=== PATIENT | female | born 1930 | race Caucasian/White ===

== ENCOUNTER → 2018-10-21 | Outpatient (CLI) | payer OTHER | END | disposition home or self-care (01) | LOC: RADUSWWP 11:53 | PROVIDERS: ATTEND Family Medicine | DX: M79.604 Pain in right leg (principal); M79.605 Pain in left leg | CPT/HCPCS: 93923 ==

== ENCOUNTER 2021-01-18 10:23 | Emergency (ER) | payer MEDICARE ==
[2021-01-18] MEDS ORDERED: SODIUM CHLORIDE 0.9% 500 ML 500 ML IV ONE (10:56)
--- NOTE | 2021-01-18 11:07 | ED ---
Weakness HPI - General Chief complaint: Weakness Stated complaint: weakness Time Seen by Provider: 01/18/21 10:30 Source: EMS Mode of arrival: EMS Limitations: physical limitation - History of Present Illness Initial comments: Patient is an 89-year-old female with past medical history of multiple myeloma, hemodialysis Friday, and Friday, coronary disease status post bypass who presents to the emergency department with weakness 2 days. She was recently hospitalized at [facility] and diagnosed with cellulitis to the left lower extremity. She was discharged home on Friday. Reports her last dialysis session was on Friday. She did not go to dialysis this week because she was having significant diarrhea. She felt more hospital she was placed on stool softeners which led to diarrhea. She also had some antibiotic use. Zak mccarthy presents with lethargy and low blood pressure. Patient reports that she has had recent low blood pressures at the other facility was started on Midodrin. Patient denies any chest pain or shortness of breath. No abdominal pain. Patient only makes minimal urine at baseline. No fevers or chills. Denies cough. No other alleviating, precipitating or modifying factors - Related Data Home Medications Medication Instructions Recorded Confirmed Aspirin 81 mg PO DAILY 11/03/20 01/18/21 Nitroglycerin 0.4 mg SL Q5M PRN 11/03/20 01/18/21 oxyCODONE-APAP 10-325MG [Percocet 1 tab PO TID PRN 11/03/20 01/18/21 10-325 mg] Acyclovir [Zovirax] 200 mg PO DAILY 01/18/21 01/18/21 Ciprofloxacin HCl [Cipro] 500 mg PO DAILY 01/18/21 01/18/21 Famotidine 10 mg PO DAILY 01/18/21 01/18/21 Lactulose [Constulose] 20 gm PO BID 01/18/21 01/18/21 Lenalidomide [Revlimid] 5 mg PO TUTHSA 01/18/21 01/18/21 Midodrine [ProAmatine] 5 mg PO AC-BID 01/18/21 01/18/21 Morphine Sulfate [Ms Contin] 15 mg PO Q12H 01/18/21 01/18/21 Sennosides [Senna] 8.6 mg PO HS 05/13/21 05/13/21 dexAMETHasone [Dexamethasone] 16 mg PO FR 01/18/21 01/18/21 Allergies Allergy/AdvReac Type Severity Reaction Status Date / Time iron Allergy Unknown Verified 01/18/21 12:33 Nohhzmy-Maa-Lbm Reductase Allergy Unknown Verified 01/18/21 12:33 Inhibitor meperidine [From Demerol] AdvReac Unknown Verified 01/18/21 10:49 Review of Systems ROS Statement: Those systems with pertinent positive or pertinent negative responses have been documented in the HPI. ROS Other: All systems not noted in ROS Statement are negative. Past Medical History Past Medical History: Asthma, Cancer, CVA/TIA, Deep Vein Thrombosis (DVT), GERD/Reflux, Hyperlipidemia, Hypertension, Myocardial Infarction (non Q-wave), Renal Disease Additional Past Medical History / Comment(s): MYELOMA. HEMODIALYSIS. LEFT LEG. "STENT IN NECK". HIATAL HERNIA. Last Myocardial Infarction Date:: 2012 History of Any Multi-Drug Resistant Organisms: None Reported Past Surgical History: Coronary Bypass/CABG, Orthopedic Surgery, Tonsillectomy Additional Past Surgical History / Comment(s): QUADRUPLE BYPASS SURGERY. LEFT HIP REPLACEMENT. Past Anesthesia/Blood Transfusion Reactions: Previous Problems w/ Anesthesia Additional Past Anesthesia/Blood Transfusion Reaction / Comment(s): INCREASE IN BLOOD PRESSURE Past Psychological History: No Psychological Hx Reported Smoking Status: Former smoker Past Alcohol Use History: None Reported Past Drug Use History: None Reported General Exam Limitations: no limitations General appearance: alert, other (aggressive with staff, demanding pain medications) Head exam: Present: atraumatic, normocephalic, normal inspection Eye exam: Present: normal appearance, PERRL, EOMI. Absent: scleral icterus, conjunctival injection, periorbital swelling Respiratory exam: Present: rales Cardiovascular Exam: Present: regular rate, normal rhythm, normal heart sounds. Absent: systolic murmur, diastolic murmur, rubs, gallop, clicks GI/Abdominal exam: Present: soft, normal bowel sounds. Absent: distended, tenderness, guarding, rebound, rigid Extremities exam: Present: other (left llower leg is bandaged - removed to reveal several open areas of skin, appear chronic) Course Vital Signs 01/18/21 01/18/21 01/18/21 10:26 11:11 12:03 Temperature Pulse Rate 71 61 64 Respiratory 18 16 18 Rate Blood Pressure 71/48 82/51 75/54 O2 Sat by Pulse 93 L 94 L Oximetry 01/18/21 12:55 Temperature 97.4 F L Pulse Rate 66 Respiratory 22 Rate Blood Pressure 92/61 O2 Sat by Pulse 98 Oximetry - Reevaluation(s) Reevaluation #1: 01/18/21 11:35 Spoke with cardiology - evaluating EKG Reevaluation #2: Cardiology requesting I call a STEMI activation 01/18/21 11:35 Reevaluation #3: Patient refusing cath. Stating she is a DNR 01/18/21 11:50 EKG Findings - EKG Comments: EKG Findings:: EKG demonstrates AV pacemaker. X-rays appropriately. Rate of 62. FL interval 134. QRS 94. QTC 479. ST segment elevation in the inferior leads. ST depression 1, aVL and V2. Negative for sgarbossa criteria. Repeat EKG at 1132 demonstrates AV pacemaker. Captures appropriately. ST elevation inferior leads, reciprocal depression 1, avl, V2-V6. Procedures - Intubation Laryngoscope: fiber optic video scope Size: 3 ET Tube Size: 7.5 ET Tube Uncuffed: No Tube Secured Depth (cm): 24 Tube Secured Location: lips Tube Placement Confirmation: visualized tube passing through cords, equal breath sounds bilaterally Intubation Complications: none Medical Decision Making - Medical Decision Making Upon arrival patient was placed into room 3. A thorough history and physical exam was performed. Patient is found to be hypotensive and covered in stool. She is cleaned up and IV access is established. Patient was given her dose of Midodrin as she has not been taking her medications and arrives with low blood pressure which she states has been present recently for her. Laboratory studies were obtained by a sinus tach. 12-lead EKG was obtained which does demonstrate inferior wall STEMI with posterior extension. Because of this I did call cardiology and they did present immediately to the emergency department. STEMI is activated however patient states that she is DO NOT RESUSCITATE, DO NOT INTUBATE and does not want cardiac catheterization at this time. Son is at bedside and does agree to this. Patient is alert, oriented and requesting no aggressive measures. We did proceed with laboratory studies. The patient was given 4 chewable aspirins, heparin, statin, Plavix and started on a heparin drip. Laboratory studies are reviewed and demonstrate a creatinine of 8.6. Lactic acid is 9.3. Troponin is 15.8. BNP 103,000. The results are discussed with the patient and her son. We did attempt to redraw some laboratory studies however the patient refused stating "just let me ". Patient does become more lethargic and eventually becomes obtunded. At this point is is when the patient's son changed his mind and stated that he wanted his mother to be a full code. Because of that she is moved to trauma bay 2. Patient does lose pulses and therefore CPR was initiated. Patient was given 4 doses of epinephrine, 1 amp of bicarb, 1 g of calcium chloride, 300 of amiodarone. After multiple pulse checks the patient fails to demonstrate cardiac activity. I did discuss with the patient son the unfortunate prognosis of continuing resuscitation at this time. Son does understand. Time of was called at 1:32 PM. Did call discuss the case with Dr. Solis. Also spoke with the nuclear medical tech who does release the patient. Case #[id number]. Patient may be released to the home. Dr. Solis will fill out certificate. - Lab Data Result diagrams: 01/18/21 11:55 01/18/21 11:55 Lab Results 01/18/21 01/18/21 01/18/21 Range/Units 11:55 11:55 11:55 WBC 11.8 H (3.8-10.6) k/uL RBC 3.53 L (3.80-5.40) m/uL Hgb 10.5 L (11.4-16.0) gm/dL Hct 34.4 (34.0-46.0) % MCV 97.6 (80.0-100.0) fL MCH 29.8 (25.0-35.0) pg MCHC 30.6 L (31.0-37.0) g/dL RDW 20.5 H (11.5-15.5) % Plt Count 96 L (150-450) k/uL MPV 9.6 Neutrophils % (Manual) 87 % Band Neuts % (Manual) 1 % Lymphocytes % (Manual) 8 % Monocytes % (Manual) 4 % Myelocytes % 1 % Neutrophils # (Manual) 10.30 H (1.3-7.7) k/uL Lymphocytes # (Manual) 0.94 L (1.0-4.8) k/uL Monocytes # (Manual) 0.47 (0-1.0) k/uL Myelocytes # (Manual) 0.12 H (0) k/uL Nucleated RBCs 1 H (0-0) /100 WBC Manual Slide Review Performed Hypochromasia Marked Anisocytosis Moderate Macrocytosis Moderate Sodium 137 (137-145) mmol/L Potassium 5.7 H (3.5-5.1) mmol/L Chloride 101 (98-107) mmol/L Carbon Dioxide 14 L (22-30) mmol/L Anion Gap 22 mmol/L BUN 76 H (7-17) mg/dL Creatinine 8.68 H* (0.52-1.04) mg/dL Est GFR (CKD-EPI)AfAm 4 (>60 ml/min/1.73 sqM) Est GFR (CKD-EPI)NonAf 4 (>60 ml/min/1.73 sqM) Glucose 103 H (74-99) mg/dL Plasma Lactic Acid Stevie 9.3 H* (0.7-2.0) mmol/L Calcium 8.8 (8.4-10.2) mg/dL Magnesium 2.2 (1.6-2.3) mg/dL Total Bilirubin 1.4 H (0.2-1.3) mg/dL AST 3344 H (14-36) U/L ALT 1756 H (4-34) U/L Alkaline Phosphatase 202 H (38-126) U/L Creatine Kinase 211 H (30-135) U/L Troponin I (0.000-0.034) ng/mL NT-Pro-B Natriuret Pep pg/mL Total Protein 6.2 L (6.3-8.2) g/dL Albumin 3.4 L (3.5-5.0) g/dL 01/18/21 01/18/21 Range/Units 11:55 11:55 WBC (3.8-10.6) k/uL RBC (3.80-5.40) m/uL Hgb (11.4-16.0) gm/dL Hct (34.0-46.0) % MCV (80.0-100.0) fL MCH (25.0-35.0) pg MCHC (31.0-37.0) g/dL RDW (11.5-15.5) % Plt Count (150-450) k/uL MPV Neutrophils % (Manual) % Band Neuts % (Manual) % Lymphocytes % (Manual) % Monocytes % (Manual) % Myelocytes % % Neutrophils # (Manual) (1.3-7.7) k/uL Lymphocytes # (Manual) (1.0-4.8) k/uL Monocytes # (Manual) (0-1.0) k/uL Myelocytes # (Manual) (0) k/uL Nucleated RBCs (0-0) /100 WBC Manual Slide Review Hypochromasia Anisocytosis Macrocytosis Sodium (137-145) mmol/L Potassium (3.5-5.1) mmol/L Chloride (98-107) mmol/L Carbon Dioxide (22-30) mmol/L Anion Gap mmol/L BUN (7-17) mg/dL Creatinine (0.52-1.04) mg/dL Est GFR (CKD-EPI)AfAm (>60 ml/min/1.73 sqM) Est GFR (CKD-EPI)NonAf (>60 ml/min/1.73 sqM) Glucose (74-99) mg/dL Plasma Lactic Acid Stevie (0.7-2.0) mmol/L Calcium (8.4-10.2) mg/dL Magnesium (1.6-2.3) mg/dL Total Bilirubin (0.2-1.3) mg/dL AST (14-36) U/L ALT (4-34) U/L Alkaline Phosphatase (38-126) U/L Creatine Kinase (30-135) U/L Troponin I 15.800 H* (0.000-0.034) ng/mL NT-Pro-B Natriuret Pep 118715 pg/mL Total Protein (6.3-8.2) g/dL Albumin (3.5-5.0) g/dL Critical Care Time Critical Care Time: Yes Critical Care Time: 48 minutes for stemi activation, cardiology consultation, subsequent decline after refusing cath. CCT independent of intubation and cpr time Disposition Clinical Impression: STEMI (ST elevation myocardial infarction), Cardiac arrest, ESRD (end stage renal disease), Lactic acid acidosis, Transaminitis Disposition: Is patient prescribed a controlled substance at d/c from ED?: No Referrals: Analia Solis MD [Primary Care Provider] - 1-2 days Preliminary Cause of : Cardiac arrest
[2021-01-18] MEDS ORDERED: MIDODRINE 5 MG TAB PO STA (11:08)
[2021-01-18] MEDS ORDERED: fentaNYL (PF) 50 MCG/ML 2 ML AMP IVP STA (11:10)
[2021-01-18] MEDS ORDERED: HEPARIN SODIUM 1,000 UN/ML (10ML VL) IV STA ×2 (11:48→11:53)
[2021-01-18] MEDS ORDERED: ASPIRIN 81 MG PO STA (11:50)
[2021-01-18] MEDS ORDERED: ATORVASTATIN 80 MG TAB PO STA (11:50)
--- NOTE | 2021-01-18 11:52 | XR ---
EXAMINATION TYPE: XR chest 2V DATE OF EXAM: 01/18/2021 COMPARISON: NONE HISTORY: Shortness of breath TECHNIQUE: Frontal and lateral views of the chest are obtained. FINDINGS: Scattered senescent parenchymal changes noted. Hyperinflation compatible with COPD. No evidence for infiltrate. No evidence for atelectasis. Heart size is stable. Mediastinal structures are stable and grossly unremarkable. No evidence for hilar prominence. Degenerative changes dorsal spine. IMPRESSION: 1. No evidence for acute pulmonary disease.
[2021-01-18] MEDS ORDERED: HEPARIN SODIUM,PORCINE 5,000 UNIT/ML 1 ML VIAL IV STA (11:53)
[2021-01-18] MEDS ORDERED: HEPARIN SODIUM 1,000 UN/ML (10ML VL) IV PRN (11:54)
[2021-01-18] MEDS ORDERED: CLOPIDOGREL 75 MG TAB PO STA (11:58)
[2021-01-18] MEDS ORDERED: HEPARIN SOD,PORK IN 0.45% NACL 25,000 UNIT in 0.45% NACL 1 250ML.BAG IV SCH (12:15)
[2021-01-18 12:22] LABS: Anisocytosis Moderate; HCT 34.4 % (34.0-46.0); HGB 10.5 gm/dL (11.4-16.0); Hypochromasia Marked; MCH 29.8 pg (25.0-35.0); MCHC 30.6 g/dL (31.0-37.0); MCV 97.6 fL (80.0-100.0); Macrocytosis Moderate; Mean Platelet Volume 9.6; RBC 3.53 m/uL (3.80-5.40); RDW 20.5 % (11.5-15.5)
[2021-01-18 12:23] LABS: Potassium 5.7 mmol/L (3.5-5.1)
[2021-01-18 12:24] LABS: Albumin 3.4 g/dL (3.5-5.0); Calcium 8.8 mg/dL (8.4-10.2); Magnesium 2.2 mg/dL (1.6-2.3); Total Bilirubin 1.4 mg/dL (0.2-1.3); Total Protein 6.2 g/dL (6.3-8.2)
[2021-01-18 12:35] LABS: Platelet Count 96 k/uL (150-450)
[2021-01-18 12:38] LABS: Band Neutrophils % 1 %; Lymphocytes # (M) 0.94 k/uL (1.0-4.8); Monocytes # (M) 0.47 k/uL (0-1.0); Myelocytes # (M) 0.12 k/uL (0); Myelocytes % 1 %; Neutrophils % (M) 87 %; Nucleated Red Blood Cells 1 /100 WBC (0-0); Total Cells Counted 200; WBC 11.8 k/uL (3.8-10.6)
[2021-01-18 12:57] VITALS: BP 92/61; PULSE 66; RESP 22; TEMP 97.4
--- NOTE | 2021-01-18 13:11 | P.CRDCN ---
History of Present Illness History of present illness: HISTORY OF PRESENTING ILLNESS This is a pleasant 89-year-old female past medical history significant for end stage renal disease on HD, hypertension with hypotension on midodrine, history of multiple myeloma, dyslipidemia, coronary artery disease status post bypass grafting and peripheral vascular disease status post carotid stenting. Exact details of all of her interventions are unavailable. She follows with a information resource consultant at [place]. She presented to the hospital with symptoms of diarrhea. She was recently seen at [facility] secondary to cellulitis. She was receiving outpatient IV antibiotics. At that time she also was having issues with constipation and was given some sort of a laxative. According to the patient she was last dialyzed on Friday. She did not make it Friday because of diarrhea. On arrival to the emergency department an EKG was obtained revealing ST elevation. STEMI alert was initiated. She is seen and examined resting comfortably in bed in no acute distress. She denies having symptoms of chest discomfort or shortness of breath. DIAGNOSTICS EKG reveals ST elevation inferiorly with recipricol depression anteriorly and dual chamber pacemaker. Chest xray negative for an acute cardiopulmonary process. Labs pending. Current cardiac medications include aspirin 81 mg daily, Zetia 10 mg daily, Imdur 30 mg daily and metoprolol 25 mg twice a day. REVIEW OF SYSTEMS At the time of my exam: CONSTITUTIONAL: Denies fever or chills. CARDIOVASCULAR: Denies chest pain, shortness of breath, orthopnea, PND or palpitations. RESPIRATORY: Denies cough. GASTROINTESTINAL: Denies abdominal pain, diarrhea, constipation, nausea or vomiting. MUSCULOSKELETAL: Denies myalgias. NEUROLOGIC: Denies numbness, tingling, headacbe or weakness. ENDOCRINE: Denies fatigue, weight change, polydipsia or polyurina. GENITOURINARY: Denies burning, hematuria or urgency with micturation. HEMATOLOGIC: Denies history of anemia or bleeding. PHYSICAL EXAMINATION Blood pressure 75/54 heart rate 64 afebrile and maintaining oxygen saturation on room air. CONSTITUTIONAL: No apparent distress. Frail. HEENT: Head is normocephalic. Pupils are equal, round. Sclerae anicteric. Mucous membranes of the mouth are moist. No JVD. No carotid bruit. CHEST EXAMINATION: Lungs are clear to auscultation. No chest wall tenderness is noted on palpation or with deep breathing. HEART EXAMINATION: Regular rate and rhythm. S1, S2 heard. Systolic ejection mur mur at the base, no gallops or rub. ABDOMEN: Soft, nontender. Positive bowel sounds. EXTREMITIES: Faint peripheral pulses, no lower extremity edema, dressing in place to the left anterior lower extremity and no calf tenderness. NEUROLOGIC EXAMINATION: Patient is awake, alert and oriented x3. ASSESSMENT ST elevated myocardial infarction Diarrhea End-stage renal disease on hemodialysis Multiple myeloma Chronic left lower extremity cellulitis Hypertension Dyslipidemia Coronary artery disease status post bypass grafting Peripheral vascular disease status post carotid stenting PLAN Recommend cardiac catheterization. The patient and her son are explained the risks of the procedure. The patient herself would prefer medical management. Due to her end-stage renal disease, multiple myeloma and multiple comorbid conditions this is a reasonable decision. We will maximize her medical therapy. Initiate IV heparin infusion for 48 hours. Obtain 2-D echocardiogram and Doppler study to assess cardiac structure and function. Check CMP, CBC, troponin and NT proBNP. Consult nephrology for possible dialysis today. Further recommendations to follow based upon clinical course. Thank you kindly for this consultation. Nurse Practitioner note has been reviewed, I agree with a documented findings and plan of care. Patient was seen and examined. Past Medical History Past Medical History: Asthma, Cancer, CVA/TIA, Deep Vein Thrombosis (DVT), GERD/Reflux, Hyperlipidemia, Hypertension, Myocardial Infarction (non Q-wave), Renal Disease Additional Past Medical History / Comment(s): MYELOMA. HEMODIALYSIS. LEFT LEG. "STENT IN NECK". HIATAL HERNIA. Last Myocardial Infarction Date:: 2012 History of Any Multi-Drug Resistant Organisms: None Reported Past Surgical History: Coronary Bypass/CABG, Orthopedic Surgery, Tonsillectomy Additional Past Surgical History / Comment(s): QUADRUPLE BYPASS SURGERY. LEFT HIP REPLACEMENT. Past Anesthesia/Blood Transfusion Reactions: Previous Problems w/ Anesthesia Additional Past Anesthesia/Blood Transfusion Reaction / Comment(s): INCREASE IN BLOOD PRESSURE Past Psychological History: No Psychological Hx Reported Smoking Status: Former smoker Past Alcohol Use History: None Reported Past Drug Use History: None Reported Medications and Allergies Home Medications Medication Instructions Recorded Confirmed Type Aspirin 81 mg PO DAILY 11/03/20 11/03/20 History Ezetimibe [Zetia] 10 mg PO DAILY 11/03/20 11/03/20 History Isosorbide Mononitrate ER [Imdur] 30 mg PO DAILY 11/03/20 11/03/20 History Metoprolol Tartrate 25 mg PO BID 11/03/20 11/03/20 History Morphine Sulfate 15 mg PO DAILY PRN 11/03/20 11/03/20 History Nitroglycerin 0.4 mg SL DIRECTED PRN 11/03/20 11/03/20 History Omeprazole 20 mg PO DAILY 11/03/20 11/03/20 History oxyCODONE-APAP 10-325MG [Percocet 1 tab PO DAILY PRN 11/03/20 11/03/20 History 10-325 mg] Allergies Allergy/AdvReac Type Severity Reaction Status Date / Time meperidine [From Demerol] AdvReac Unknown Verified 01/18/21 10:49 Physical Exam Vitals: Vital Signs Pulse Resp BP Pulse Ox 01/18/21 11:11 61 16 82/51 94 L 01/18/21 10:26 71 18 71/48 93 L Intake and Output 01/17/21 01/18/21 01/18/21 22:59 06:59 14:59 Other: Weight 54.431 kg Results Current Medications Generic Name Dose Route Start Last Admin Trade Name Freq PRN Reason Stop Dose Admin Heparin Sodium (Porcine) 4,000 unit 01/18/21 11:53 01/18/21 11:50 Heparin Sodium,Porcine 5,000 Unit/Ml 1 Ml Vial IV 01/18/21 11:54 4,000 unit ONCE STA Administration Intake and Output 01/17/21 01/18/21 01/18/21 22:59 06:59 14:59 Other: Weight 54.431 kg Patient Weight 01/19/21 06:59 Weight 54.431 kg
[2021-01-18] MEDS ORDERED: CALCIUM CHLORIDE 100 MG/ML 10 ML SYRINGE ONE (13:15)
[2021-01-18] MEDS ORDERED: SODIUM BICARB 8.4% 50 ML SYR (1 MEQ/ML) ONE (13:15)
[2021-01-18] MEDS ORDERED: DEXTROSE 5% IN WATER 50 ML BAG ONE (13:15)
[2021-01-18] MEDS ORDERED: AMIODARONE 50 MG/ML 3 ML VIAL IV ONE (13:15)
[2021-01-18] MEDS ORDERED: EPINEPHrine 10 ML SYRINGE (0.1 MG/ML) ONE (13:15)
[2021-01-19] MEDS ORDERED: ASPIRIN 81 MG PO SCH (09:00)
[2021-01-19] MEDS ORDERED: CLOPIDOGREL 75 MG TAB PO SCH (09:00)
[2021-01-19] MEDS ORDERED: ATORVASTATIN 40 MG TAB PO SCH (09:00)
--- NOTE | 2021-01-31 10:23 | ECHOF ---
Referral Reason:stemi, declines cath ER 3 MEASUREMENTS -------- HEIGHT: 165.1 cm WEIGHT: 54.4 kg BP: RVIDd: 3.7 cm (< 3.3) IVSd: 1.2 cm (0.6 - 1.1) LVIDd: 3.3 cm (3.9 - 5.3) LVPWd: 1.1 cm (0.6 - 1.1) IVSs: 1.6 cm LVIDs: 1.6 cm LVPWs: 1.8 cm LAESV Index (A-L): 16.63 ml/m MV E Obey: 1.46 m/s MV DecT: 217 ms MV A Obey: 0.99 m/s MV E/A Ratio: 1.47 AV maxP.57 mmHg AV meanP.64 mmHg AR PHT: 606 ms RAP: 5.00 mmHg RVSP: 30.57 mmHg FINDINGS -------- This was a technically good study. The left ventricular size is normal. There is mild concentric left ventricular hypertrophy. Overa ll left ventricular systolic function is low-normal with, an EF between 50 - 55 %. There is paradox ical/dysynergic septal motion consistent with right ventricular volume overload and/or elevated right ventricular end-diastolic pressure. Normal LAP Grade 1 Diastolic Dysfunction. Basal inferoseptal LV wall motion is dyskinetic. The right ventricle is mild to moderately enlarged. The left atrial size is normal. Normal LA size by volume 22+/-6 ml/m2. RA appears enlarged. Aortic valve is trileaflet and is mildly thickened. There is mild aortic regurgitation. There is mild aortic stenosis present. Peak/mean gradient across the Aortic Valve is 25.57mmHg / 12.64mmHg. The mitral valve is normal. The mitral valve leaflets are mildly thickened. Mild mitral annular c alcification present. Mild mitral regurgitation is present. The tricuspid valve appears structurally normal. Severe tricuspid regurgitation present. Right ve ntricular systolic pressure is normal at < 35 mmHg. There is no pulmonic regurgitation present. The aortic root size is normal. Normal inferior vena cava with normal inspiratory collapse consistent with estimated right atrial pre ssure of 5 mmHg. There is no pericardial effusion. CONCLUSIONS -------- 1. The left ventricular size is normal. 2. There is mild concentric left ventricular hypertrophy. 3. Overall left ventricular systolic function is low-normal with, an EF between 50 - 55 %. 4. There is paradoxical/dysynergic septal motion consistent with right ventricular volume overload an d/or elevated right ventricular end-diastolic pressure. 5. Normal LAP Grade 1 Diastolic Dysfunction. 6. Basal inferoseptal LV wall motion is dyskinetic. 7. The right ventricle is mild to moderately enlarged. 8. Aortic valve is trileaflet and is mildly thickened. 9. There is mild aortic regurgitation. 10. There is mild aortic stenosis present. 11. Peak/mean gradient across the Aortic Valve is 25.57mmHg / 12.64mmHg. 12. The mitral valve leaflets are mildly thickened. 13. Mild mitral annular calcification present. 14. Mild mitral regurgitation is present. 15. Severe tricuspid regurgitation present. 16. There is no pericardial effusion. LOKIE DRIVER: Shirley Davis RDCS
== END 2021-01-18 13:32 | disposition expired ==
LOC: SUPCPDRO 10:23 → EC 10:23 → UNDOADMIN 11:47 → 2SICU 11:47 → EC 13:32
DX: I46.9 Cardiac arrest, cause unspecified (principal); I21.3 ST elevation (STEMI) myocardial infarction of unspecified site; I12.0 Hypertensive chronic kidney disease with stage 5 chronic kidney disease or end stage renal disease; N18.6 End stage renal disease; E87.2 Acidosis; R74.01 Elevation of levels of liver transaminase levels; J45.909 Unspecified asthma, uncomplicated; K21.9 Gastro-esophageal reflux disease without esophagitis; E78.5 Hyperlipidemia, unspecified; I25.2 Old myocardial infarction; I25.10 Atherosclerotic heart disease of native coronary artery without angina pectoris; Z86.73 Personal history of transient ischemic attack (TIA), and cerebral infarction without residual deficits; Z86.718 Personal history of other venous thrombosis and embolism; Z87.891 Personal history of nicotine dependence; Z79.899 Other long term (current) drug therapy; Z79.52 Long term (current) use of systemic steroids; Z79.82 Long term (current) use of aspirin; Z99.2 Dependence on renal dialysis; Z95.1 Presence of aortocoronary bypass graft
CPT/HCPCS: 99291; 96374; 96375; 31500; 92950; 36415; 93005; 93306; 83880; 80053; 82550; 83605; 83735; 84484; 85025; 71046; J1644; J0282; J0171; J3010